=== PATIENT | male | born 1995 | race Caucasian/White ===

== ENCOUNTER 2020-09-21 15:09 | Emergency (ER) | payer OTHER ==
[2020-09-21] MEDS ORDERED: MORPHINE 4 MG/ML SYR ONE (15:51)
[2020-09-21] MEDS ORDERED: ONDANSETRON 4 MG/2 ML VIAL ONE (15:51)
--- NOTE | 2020-09-21 15:55 | RAD REPORT ---
EXAM DESCRIPTION: CT - Chest For Pe Angio - 09/21/2020 3:41 pm CLINICAL HISTORY: Shortness of breath COMPARISON: None. TECHNIQUE: Dynamically enhanced axial 3 mm thick images of the chest were obtained during administra tion of <100> mL Isovue 370 IV contrast. Coronal and oblique reconstruction images were generated and reviewed. Exam utilizes a protocol for optimal evaluation of pulmonary arterial tree. Maximum intensity projections 3D imaging was utilized All CT scans are performed using dose optimization technique as appropriate and may include automated exposure control or mA/KV adjustment according to patient size. FINDINGS: A pulmonary embolus is not seen. A thoracic aortic aneurysm is not noted. A pleural effusion is not seen. A pericardial effusion is not seen. A lung consolidation is not present. IMPRESSION: Negative for a pulmonary embolism.
--- NOTE | 2020-09-21 16:03 | RAD REPORT ---
EXAM DESCRIPTION: CT - Abdomen Pelvis W Contrast - 09/21/2020 3:41 pm CLINICAL HISTORY: Abdominal pain COMPARISON: none. TECHNIQUE: Computed axial tomography of the abdomen pelvis was obtained. 100 cc Isovue-300 was admin istered intravenously. Oral contrast was not requested which limits evaluation of bowel. All CT scans are performed using dose optimization technique as appropriate and may include automated exposure control or mA/KV adjustment according to patient size. FINDINGS: Nondisplaced fracture involves a mid to lower anterolateral right rib. 5 x 3 centimeter ill-defined low-density area is present within medial segment left lobe of the liver extending into the anterior segment right lobe of the liver. No subcapsular hepatic hematoma. Low density within the posterior liver likely artifact related to the patient's arm being down by his side. Spleen, pancreas, left adrenal kidneys are unremarkable. 2.6 centimeter low-density right adrenal lesion likely an adenoma. Small amount of pelvic ascites. No evidence of diverticulitis. . IMPRESSION: Nondisplaced fracture mid to lower anterolateral right rib 5 x 3 centimeter hepatic laceration likely subacute. This should be compared with prior CT. Small amount of pelvic ascites
[2020-09-21 17:32] LABS: Absolute Lymphocytes (CBC) 0.9 K/uL (0.7-4.9); Basophils % 0.3 % (0-1.3); Hematocrit 38.7 % (39.6-49.0); Lymphocytes % 5.4 % (15.3-44.8); RBC Red Blood Cell Count 4.22 M/uL (4.33-5.43)
[2020-09-21 17:45] LABS: BUN Blood Urea Nitrogen 24 mg/dL (7-18); Bicarbonate 31 mmol/L (21-32); Glucose Level 96 mg/dL (74-106); Potassium 4.1 mmol/L (3.5-5.1); Sodium Level 137 mmol/L (136-145)
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
[2020-09-21] MEDS ORDERED: FENTANYL CITR 100 MCG/2 ML ONE (18:33)
[2020-09-21] MEDS ORDERED: NA CHLORIDE 0.9% 1,000 ML ONE (18:33)
[2020-09-21 18:38] VITALS: TEMP 97.7
[2020-09-21 18:40] VITALS: O2SAT 99
[2020-09-21 18:41] VITALS: BP 96/77
== END 2020-09-21 18:23 | disposition short-term general hospital (02) ==
LOC: ER 15:09
DX: S36.113A Laceration of liver, unspecified degree, initial encounter (principal); R06.00 Dyspnea, unspecified; V89.2XXS Person injured in unspecified motor-vehicle accident, traffic, sequela
CPT/HCPCS: 85025; 80048; 36415; 82565; 71275; 74177; Q9967; J3010; J7030; J2405; 96374; 96375; 99285